=== PATIENT | male | born 1970 | race African-American/Black ===

== ENCOUNTER 2018-08-27 16:47 | Inpatient (IN) | payer MEDICAID ==
[~2018-08-27] VITALS: Ht 190.5 cm; Wt 223.6 kg
[2018-08-28] MEDS ORDERED: ONDANSETRON HCL 4MG/2ML INJ IV STA (00:07)
[2018-08-28] MEDS ORDERED: MORPHINE SULFATE 4 MG/ML CPJ (NOT FOR IM USE) IV STA (00:07)
[2018-08-28 01:40] LABS: BASOPHILS % 0.4 % (0.0-2.0); HEMATOCRIT. 42.7 % (42.0-52.0); HEMOGLOBIN. 14.1 g/dL (14.0-18.0); LYMPHOCYTES % 10.8 % (20.0-50.0); MEAN CORPUSCULAR HEMOGLOBIN 29.5 pg (28.0-32.0); MEAN CORPUSCULAR VOLUME 89.7 fL (80.0-94.0); MEAN PLATELET VOLUME 8.9 fl (7.4-10.4); MONOCYTES % 6.4 % (2.0-8.0); NEUTROPHILS % 82.4 % (40.0-76.0); PLATELET 281 x1000/uL (130-400); RED BLOOD CELL COUNT 4.76 mill/uL (4.7-6.1); RED CELL DISTRIBUTION WIDTH 15.6 % (11.6-14.6)
[2018-08-28 01:50] LABS: INR 1.1; PROTHROMBIN TIME 10.7 sec (9.1-11.1)
[2018-08-28 02:35] LABS: CHLORIDE 107 mEq/L (98-107)
[2018-08-28 06:20] VITALS: BP 151/84
[2018-08-28 06:44] VITALS: BP 151/84
[2018-08-28 08:00] VITALS: BP 126/75
[2018-08-28] MEDS ORDERED: GUAIFENESIN 200MG/10ML SUGAR FREE UDC PO PRN (08:00)
[2018-08-28] MEDS ORDERED: HYDROMORPHONE HCL/PF 2MG/ML CPJ IV PRN (08:00)
[2018-08-28] MEDS ORDERED: ONDANSETRON HCL 4MG/2ML INJ IV PRN (08:00)
[2018-08-28] MEDS ORDERED: DOCUSATE SODIUM 100MG CAPSULE PO PRN (08:00)
[2018-08-28] MEDS ORDERED: CLONIDINE 0.1MG TABLET PO PRN (08:00)
[2018-08-28] MEDS ORDERED: MAGNESIUM/ALUMINUM HYDROXIDE/SIMETHICONE 30ML UDC PO PRN (08:00)
[2018-08-28] MEDS ORDERED: IPRATROPIUM/ALBUTEROL 0.5-3(2.5)MG/3ML NEB INH PRN (08:00)
[2018-08-28] MEDS ORDERED: LORAZEPAM 2MG/ML CPJ IV PRN (08:00)
[2018-08-28] MEDS ORDERED: HYDROCODONE/ACETAMINOPHEN 10/325MG TABLET PO PRN (08:00)
[2018-08-28] MEDS ORDERED: HYDRALAZINE 20MG/ML VIAL IV PRN (08:00)
[2018-08-28] MEDS: ASPIRIN 81MG TABLET PO SCH (11:05)
[2018-08-28] MEDS: ENOXAPARIN 40MG/0.4ML SYR SUBCUT SCH ×2 (11:05→20:48)
[2018-08-28 12:00] VITALS: BP 107/65
[2018-08-28] MEDS: PANTOPRAZOLE SODIUM 40 MG/VIAL IV SCH (15:05)
[2018-08-28] MEDS: SODIUM CHLORIDE 0.9% INJ 3ML FLUSH IVF SCH ×2 (15:06→20:49)
[2018-08-28 15:56] VITALS: BP 122/71
[2018-08-28 17:54] LABS: CREATINE KINASE 95 IU/L (39-308)
[2018-08-28 17:55] LABS: CREATINE KINASE MB FRACTION < 1.0 ng/mL (0.5-3.6)
[2018-08-28] MEDS: ACETAMINOPHEN 325MG TABLET PO PRN ×2 (18:26→23:30)
[2018-08-28 20:00] VITALS: BP 108/58
[2018-08-29] VITALS: BP 125/69
[2018-08-29 04:00] VITALS: BP 117/69
[2018-08-29 06:18] LABS: CLARITY URINE CLEAR (CLEAR); COLOR URINE YELLOW (YELLOW); KETONES URINE NEGATIVE (NEGATIVE); LEUKOCYTE ESTERASE URINE NEGATIVE (NEGATIVE); NITRITE URINE NEGATIVE (NEGATIVE); OCCULT BLOOD URINE NEGATIVE (NEGATIVE); PH URINE 5.5 (4.5-8.0); PROTEIN URINE NEGATIVE (NEGATIVE); SPECIFIC GRAVITY URINE 1.011 (1.005-1.030)
[2018-08-29] MEDS: SODIUM CHLORIDE 0.9% INJ 3ML FLUSH IVF SCH (06:32)
[2018-08-29 07:32] LABS: CHLORIDE 105 mEq/L (98-107)
[2018-08-29 07:33] LABS: BASOPHILS % 0.5 % (0.0-2.0); EOSINOPHILS % 0.7 % (0.0-5.0); HEMATOCRIT. 39.8 % (42.0-52.0); HEMOGLOBIN. 13.1 g/dL (14.0-18.0); LYMPHOCYTES % 29.6 % (20.0-50.0); MEAN CORPUSCULAR HEMOGLOBIN 29.4 pg (28.0-32.0); MEAN CORPUSCULAR VOLUME 89.5 fL (80.0-94.0); MEAN PLATELET VOLUME 8.2 fl (7.4-10.4); MONOCYTES % 12.4 % (2.0-8.0); NEUTROPHILS % 56.8 % (40.0-76.0); PLATELET 267 x1000/uL (130-400); RED BLOOD CELL COUNT 4.44 mill/uL (4.7-6.1); RED CELL DISTRIBUTION WIDTH 15.8 % (11.6-14.6)
[2018-08-29 07:42] LABS: CREATINE KINASE MB FRACTION 1.1 ng/mL (0.5-3.6)
[2018-08-29 07:43] LABS: LDL CHOLESTEROL 108 mg/dL (5-100)
[2018-08-29 07:44] LABS: CREATINE KINASE 85 IU/L (39-308); HDL CHOLESTEROL 40 mg/dL (40-59); T4 FREE 1.01 ng/dL (0.76-1.46)
[2018-08-29 08:00] VITALS: BP 126/72
[2018-08-29] MEDS: ENOXAPARIN 40MG/0.4ML SYR SUBCUT SCH ×2 (08:52→09:00)
[2018-08-29] MEDS: ASPIRIN 81MG TABLET PO SCH (08:52)
[2018-08-29] MEDS: PANTOPRAZOLE SODIUM 40 MG/VIAL IV SCH (08:52)
[2018-08-29 12:00] VITALS: BP 143/77
[2018-08-29 13:42] VITALS: BP 143/77
== END 2018-08-29 14:25 | disposition home or self-care (01) | DRG 243 ==
LOC: ER 17:44 → 5WST 08-28 02:49 → EDBEDREQ 08-28 02:53 → EDBEDREQTM 08-28 02:53 → ENRESERV 08-28 04:47
PROVIDERS: ADMIT Internal Medicine; ATTEND Internal Medicine
DX: K21.9 Gastro-esophageal reflux disease without esophagitis (principal); E44.1 Mild protein-calorie malnutrition; E66.01 Morbid (severe) obesity due to excess calories; E78.5 Hyperlipidemia, unspecified; I10 Essential (primary) hypertension; J45.909 Unspecified asthma, uncomplicated; Z68.44 Body mass index [BMI] 60.0-69.9, adult; M94.0 Chondrocostal junction syndrome [Tietze]
CPT/HCPCS: 36415; 71045; 78580; 80061; 82550; 82553; 83036; 83880; 84439; 84443; 84484; 85379; 93005; 93306; 93970; 96374; 96375; 99285; C9113; J1650; J2270; J2405

== ENCOUNTER 2018-11-18 02:29 | Emergency (ER) | payer MEDICAID ==
[~2018-11-18] VITALS: Ht 190.5 cm; Wt 228.0 kg
[2018-11-18] MEDS ORDERED: MORPHINE SULFATE 4 MG/ML CPJ (NOT FOR IM USE) IV STA (06:34)
[2018-11-18] MEDS ORDERED: ONDANSETRON HCL 4MG/2ML INJ IV STA (06:34)
[2018-11-18] MEDS ORDERED: KETOROLAC 30MG/ML VIAL IV STA (06:34)
[2018-11-18 07:02] LABS: CLARITY URINE CLEAR (CLEAR); COLOR URINE YELLOW (YELLOW); KETONES URINE 2+ (NEGATIVE); LEUKOCYTE ESTERASE URINE NEGATIVE (NEGATIVE); NITRITE URINE NEGATIVE (NEGATIVE); OCCULT BLOOD URINE NEGATIVE (NEGATIVE); PH URINE 6.5 (4.5-8.0); PROTEIN URINE NEGATIVE (NEGATIVE); SPECIFIC GRAVITY URINE 1.024 (1.005-1.030)
[2018-11-18 07:21] LABS: BASOPHILS % 0.7 % (0.0-2.0); EOSINOPHILS % 0.5 % (0.0-5.0); HEMATOCRIT. 43.5 % (42.0-52.0); HEMOGLOBIN. 14.5 g/dL (14.0-18.0); LYMPHOCYTES % 15.7 % (20.0-50.0); MEAN CORPUSCULAR HEMOGLOBIN 29.7 pg (28.0-32.0); MEAN CORPUSCULAR VOLUME 89.4 fL (80.0-94.0); MEAN PLATELET VOLUME 8.5 fl (7.4-10.4); MONOCYTES % 7.2 % (2.0-8.0); NEUTROPHILS % 75.9 % (40.0-76.0); PLATELET 249 x1000/uL (130-400); RED BLOOD CELL COUNT 4.87 mill/uL (4.7-6.1); RED CELL DISTRIBUTION WIDTH 15.3 % (11.6-14.6)
[2018-11-18] MEDS ORDERED: SODIUM CHLORIDE 0.9% 1,000 ML IV ONE (07:26)
[2018-11-18 07:31] LABS: INR 1.1; PROTHROMBIN TIME 11.4 sec (9.6-11.0)
[2018-11-18 07:46] LABS: CHLORIDE 104 mEq/L (98-107)
[2018-11-18 09:00] VITALS: BP 141/83
== END 2018-11-18 09:04 | disposition home or self-care (01) ==
LOC: ER 02:29
DX: R10.13 Epigastric pain (principal); R07.89 Other chest pain
CPT/HCPCS: 36415; 80053; 81003; 83690; 85025; 85610; 93005; 96374; 96375; 99284; J1885; J2270; J2405; J7030; Z7610

== ENCOUNTER 2018-12-15 12:54 | Inpatient (IN) | payer MEDICAID ==
[~2018-12-15] VITALS: Ht 172.7 cm; Wt 199.8 kg
[2018-12-15] MEDS ORDERED: ONDANSETRON HCL 4MG/2ML INJ IV STA (15:39)
[2018-12-15] MEDS ORDERED: SODIUM CHLORIDE 0.9% 1,000 ML IV ONE (15:39)
[2018-12-15] MEDS ORDERED: MORPHINE SULFATE 4 MG/ML CPJ (NOT FOR IM USE) IV STA (15:39)
[2018-12-15] MEDS ORDERED: PANTOPRAZOLE 40MG DR TABLET PO ONE (15:45)
[2018-12-15] MEDS ORDERED: FAMOTIDINE 20MG/2ML VIAL IV ONE (15:45)
[2018-12-15 16:03] LABS: BASOPHILS % 0.6 % (0.0-2.0); EOSINOPHILS % 0.1 % (0.0-5.0); HEMATOCRIT. 44.9 % (42.0-52.0); HEMOGLOBIN. 14.8 g/dL (14.0-18.0); LYMPHOCYTES % 11.1 % (20.0-50.0); MEAN CORPUSCULAR HEMOGLOBIN 29.9 pg (28.0-32.0); MEAN CORPUSCULAR VOLUME 90.6 fL (80.0-94.0); MONOCYTES % 5.3 % (2.0-8.0); NEUTROPHILS % 82.9 % (40.0-76.0); PLATELET 262 x1000/uL (130-400); RED BLOOD CELL COUNT 4.96 mill/uL (4.7-6.1); RED CELL DISTRIBUTION WIDTH 15.4 % (11.6-14.6)
[2018-12-15 16:08] LABS: CHLORIDE 107 mEq/L (98-107)
[2018-12-15 16:41] LABS: INR 1.1; PARTIAL THROMBOPLASTIN TIME 34.2 sec (23.4-31.0); PROTHROMBIN TIME 11.1 sec (9.6-11.0)
[2018-12-15] MEDS ORDERED: CLONIDINE 0.1MG TABLET PO NR (22:30)
[2018-12-15 23:26] VITALS: BP 174/110
[2018-12-16] VITALS: BP 174/110
[2018-12-16] MEDS ORDERED: DEXTROSE 50% WATER 50ML SYRINGE IV PRN (01:15)
[2018-12-16] MEDS ORDERED: ONDANSETRON HCL 4MG/2ML INJ IV PRN (01:15)
[2018-12-16] MEDS ORDERED: MORPHINE SULFATE 4 MG/ML CPJ (NOT FOR IM USE) IV PRN (01:30)
[2018-12-16] MEDS ORDERED: PANTOPRAZOLE SODIUM 40 MG/VIAL IV SCH (03:00)
[2018-12-16] MEDS ORDERED: NON FORMULARY PATIENT HOME MED XX SCH (03:15)
[2018-12-16 04:00] VITALS: BP 140/88
[2018-12-16] MEDS: DEXT 5%/0.45% NACL KCL 20MEQ/L 1,000 ML IV SCH ×2 (05:04→13:26)
[2018-12-16] MEDS: AMLODIPINE 10MG TABLET PO SCH ×3 (05:05→21:38)
[2018-12-16] MEDS: BLOOD SUGAR DIAGNOSTIC STRIP TEST SCH ×4 (06:12→21:32)
[2018-12-16] MEDS: INSULIN LISPRO 100 UNITS/ML SUBCUT SCH ×4 (06:12→21:00)
[2018-12-16 06:37] LABS: BASOPHILS % 0.7 % (0.0-2.0); EOSINOPHILS % 0.4 % (0.0-5.0); HEMATOCRIT. 41.1 % (42.0-52.0); HEMOGLOBIN. 13.4 g/dL (14.0-18.0); LYMPHOCYTES % 22.7 % (20.0-50.0); MEAN CORPUSCULAR HEMOGLOBIN 29.7 pg (28.0-32.0); MEAN CORPUSCULAR VOLUME 91.4 fL (80.0-94.0); MEAN PLATELET VOLUME 8.7 fl (7.4-10.4); MONOCYTES % 12.8 % (2.0-8.0); NEUTROPHILS % 63.4 % (40.0-76.0); PLATELET 220 x1000/uL (130-400); RED BLOOD CELL COUNT 4.49 mill/uL (4.7-6.1); RED CELL DISTRIBUTION WIDTH 15.5 % (11.6-14.6)
[2018-12-16 06:43] LABS: CHLORIDE 108 mEq/L (98-107)
[2018-12-16] MEDS ORDERED: AMLODIPINE 10MG TABLET PO SCH (09:00)
[2018-12-16] MEDS: PANTOPRAZOLE 40MG DR TABLET PO SCH ×2 (09:54→21:38)
[2018-12-16] MEDS ORDERED: ACETAMINOPHEN 325MG TABLET PO PRN (16:00)
[2018-12-16 20:00] VITALS: BP 136/83
[2018-12-17] VITALS: BP 148/91
[2018-12-17] MEDS: DEXT 5%/0.45% NACL KCL 20MEQ/L 1,000 ML IV SCH (00:09)
[2018-12-17] MEDS: BLOOD SUGAR DIAGNOSTIC STRIP TEST SCH ×2 (06:45→12:00)
[2018-12-17 07:05] LABS: BASOPHILS % 0.7 % (0.0-2.0); EOSINOPHILS % 1.1 % (0.0-5.0); HEMATOCRIT. 41.3 % (42.0-52.0); HEMOGLOBIN. 13.3 g/dL (14.0-18.0); MEAN CORPUSCULAR HEMOGLOBIN 29.5 pg (28.0-32.0); MEAN CORPUSCULAR VOLUME 91.6 fL (80.0-94.0); MONOCYTES % 10.9 % (2.0-8.0); NEUTROPHILS % 62.3 % (40.0-76.0); PLATELET 230 x1000/uL (130-400); RED BLOOD CELL COUNT 4.51 mill/uL (4.7-6.1); RED CELL DISTRIBUTION WIDTH 15.3 % (11.6-14.6)
[2018-12-17 07:15] LABS: CHLORIDE 105 mEq/L (98-107)
[2018-12-17] MEDS: INSULIN LISPRO 100 UNITS/ML SUBCUT SCH ×2 (07:15→12:15)
[2018-12-17] MEDS: PANTOPRAZOLE 40MG DR TABLET PO SCH (07:32)
[2018-12-17 08:00] VITALS: BP 105/57
[2018-12-17] MEDS: AMLODIPINE 10MG TABLET PO SCH (09:00)
[2018-12-17 12:44] VITALS: BP 110/54
[2018-12-17 14:15] VITALS: BP 110/54
== END 2018-12-17 16:10 | disposition home or self-care (01) | DRG 253 ==
LOC: ER 12:54 → 5WST 19:16 → EDBEDREQ 19:18 → ENRESERV 21:24
PROVIDERS: ADMIT Internal Medicine; ATTEND Internal Medicine
DX: K92.2 Gastrointestinal hemorrhage, unspecified (principal); J96.00 Acute respiratory failure, unspecified whether with hypoxia or hypercapnia; Z68.44 Body mass index [BMI] 60.0-69.9, adult; E66.2 Morbid (severe) obesity with alveolar hypoventilation; D64.9 Anemia, unspecified; E11.9 Type 2 diabetes mellitus without complications; I11.9 Hypertensive heart disease without heart failure; I16.0 Hypertensive urgency; Z71.3 Dietary counseling and surveillance; Z79.84 Long term (current) use of oral hypoglycemic drugs
CPT/HCPCS: 36415; 71045; 80048; 82962; 83036; 86850; 86900; 96374; 96375; 99285; A6261; C9113; J2270; J2405; J3490; J7030